=== PATIENT | male | born 1990 | race Caucasian/White ===

== ENCOUNTER → 2021-03-06 09:33 | Outpatient (CLI) | payer OTHER, SELFPAY ==
[2021-03-06 11:08] LABS: Liquefaction Semen YES (YES); Sperm Count 30 x10^6/mL (20-150); Sperm Morphology 38 %ABNORM (0-30); Sperm Motility 25% % Motile; Volume Semen 4.5 (1.0-5.0)
== END ==
PROVIDERS: Referring Provider Nurse Practitioner Obstetrics & Gynecology; Visit Provider Nurse Practitioner Obstetrics & Gynecology
DX: Z31.41 Encounter for fertility testing (principal)
CPT/HCPCS: 89320